=== PATIENT | female | born 1960 | race Caucasian/White ===

== ENCOUNTER → 2016-08-25 | Outpatient (CLI) | payer MEDICARE, MEDICAID ==
[~2016-08-25] MED LIST: ADVIL200 MG OR; CALTRATE 600 +1 TA1 PO; CRESTOR10 MG PO; CYCLOBENZAPRINE10 MG PO; FENOFIBRATE160 MG PO; HYDROCODONE-APA1 TA2 PO; JANUVIA50 MG PO; KEFLEX 500MG.500 MG PO; LEVAMIR IJ; LEVEMIR100 U/ML SC; LEVOTHYROXIN0.125 MG PO; LISINOPRIL 5MG T5 MG PO; METFORMIN1000 MG PO; NORCO 325 MG-51 TAB PO; NORCO1 TAB PO; Novolog100 U/ML SC; PERCOCET 325 MG1 TA3 PO; VITAMIN B121000 MC2 SL; ZITHROMAX Z PA250 MG PO; [UNRECOGNIZED DRUG - OTHER] PO
== END ==
LOC: LAB 07:53
DX: E78.5 Hyperlipidemia, unspecified (principal); E11.9 Type 2 diabetes mellitus without complications; Z79.4 Long term (current) use of insulin